=== PATIENT | female | born 1945 | race Caucasian/White ===

== ENCOUNTER → 2020-03-02 14:19 | Outpatient (BNVA) | payer MEDICARE, OTHER, SELFPAY | PROVIDERS: Visit Provider Nurse Practitioner Family | DX: Z53.29 Procedure and treatment not carried out because of patient's decision for other reasons (principal) | CPT/HCPCS: 73030 ==

== ENCOUNTER 2020-03-09 14:32 | Outpatient (CLI) | payer MEDICARE, OTHER, SELFPAY ==
--- NOTE | 2020-03-09 14:39 | MR_ITS ---
WS: [id number] MRI LEFT SHOULDER NONCONTRAST TECHNIQUE: Sagittal T2, coronal T1, T2 and proton density imaging. Axial gradient PDE imaging. CLINICAL INFORMATION: FALL/LEFT SHOULDER PAIN COMPARISON: None. FINDINGS: Mild degenerative arthritis at the AC joint. Mild downsloping of the acromion. Slight subacromial spu rring. Normal supraspinatus and infraspinatus. Normal teres minor. Normal subscapularis. Normal bicep s tendon in the bicipital groove. Labrum is normal in appearance. No acute appearing labral tears. No rmal glenoid. Well-circumscribed lesion in the proximal humeral neck measuring 11 mm with T2 hyperintense foramina small amount of surrounding edema. This lesion is well-circumscribed and appears nonaggressive. This follows bone marrow signal with preservation of the normal fatty bone marrow signal. Differential con siderations include Enchondroma, intraosseous lipoma, and intraosseous hemangioma. Lesion is not typi frandy for metastatic disease. This can be further evaluated with humerus CT. This is not definitely vis ualized on the radiographs. MR/MR shoulder LT wo con* [id number] IMPRESSION: 1. Rotator cuff is normal in appearance. No full-thickness rotator cuff tears. 2. Normal biceps tendon in the bicipital groove. 3. Well-circumscribed 11 mm nonspecific lesion in the humeral neck with well-c ircumscribed margin discussed above. Small amount of surrounding edema. This fo llows bone marrow on all sequences. Recommend further evaluation with CT. 4. No other significant findings.
== END 2020-03-09 14:33 | disposition home or self-care (01) ==
LOC: RADWPI 14:37
PROVIDERS: PCP Nurse Practitioner Family; Visit Provider Nurse Practitioner Family
DX: M25.512 Pain in left shoulder (principal); W19.XXXA Unspecified fall, initial encounter; M75.92 Shoulder lesion, unspecified, left shoulder
CPT/HCPCS: 73221

== ENCOUNTER → 2021-06-16 08:29 | Outpatient (BNVA) | payer MEDICARE, OTHER, SELFPAY | PROVIDERS: PCP Nurse Practitioner Family; Visit Provider Internal Medicine | DX: R79.82 Elevated C-reactive protein (CRP) (principal); M25.511 Pain in right shoulder; M25.512 Pain in left shoulder; Z98.890 Other specified postprocedural states; Z79.899 Other long term (current) drug therapy | CPT/HCPCS: 36415; 99214 ==

== ENCOUNTER 2021-06-16 10:12 | Outpatient (CLI) | payer MEDICARE, OTHER, SELFPAY ==
--- NOTE | 2021-06-16 10:19 | XR_ITS ---
WS: [id number] SHOULDER LEFT TECHNIQUE: 3 views of the left shoulder CLINICAL INFORMATION: M25.519 - Pain in unspecified shoulder COMPARISON: None. FINDINGS: Mild degenerative arthritis acromioclavicular joint. Narrowing of the subacromial space. Normal gleno humeral joint. Acromion is normal in appearance. Normal glenoid. No evidence of acute fracture disloc ation. Surgical clips along the left hilum. XR/XR shoulder LT min 2V* [id number] IMPRESSION: Mild degenerative arthritis AC joint. Narrowing of the subacromial space. No ac trevre fractures or dislocation.
--- NOTE | 2021-06-16 10:19 | XR_ITS ---
WS: [id number] SHOULDER RIGHT TECHNIQUE: 3 views of the right shoulder CLINICAL INFORMATION: M25.519 - Pain in unspecified shoulder COMPARISON: None. FINDINGS: Mild degenerative arthritis acromioclavicular joint. Mild narrowing of the subacromial space. Normal glenohumeral joint. Acromion is normal in appearance. Normal glenoid. No evidence of acute fracture d islocation. XR/XR shoulder RT min 2V* [id number] IMPRESSION: Mild degenerative arthritis AC joint. No acute fracture or dislocation.
== END 2021-06-16 10:13 | disposition home or self-care (01) ==
PROVIDERS: PCP Nurse Practitioner Family; Visit Provider Internal Medicine
DX: M25.519 Pain in unspecified shoulder (principal); R79.82 Elevated C-reactive protein (CRP)
CPT/HCPCS: 73030; 81003; 82728; 83540; 85651; 86140; 86160; 86162; 86200; 86235; 86255; 86376

== ENCOUNTER → 2021-08-10 14:07 | Outpatient (BNVA) | payer MEDICARE, OTHER, SELFPAY | PROVIDERS: PCP Nurse Practitioner Family; Visit Provider Internal Medicine | DX: M25.519 Pain in unspecified shoulder (principal); R93.6 Abnormal findings on diagnostic imaging of limbs; R79.82 Elevated C-reactive protein (CRP); Z79.899 Other long term (current) drug therapy | CPT/HCPCS: 80053; 81000; 81003; 83516; 84155; 84165; 85025; 85651; 86140 ==

== ENCOUNTER → 2021-08-30 08:25 | Outpatient (BNVA) | payer MEDICARE, OTHER, SELFPAY | PROVIDERS: PCP Nurse Practitioner Family; Visit Provider Internal Medicine | DX: M25.519 Pain in unspecified shoulder (principal); R79.82 Elevated C-reactive protein (CRP); Z79.52 Long term (current) use of systemic steroids | CPT/HCPCS: 99214 ==

== ENCOUNTER → 2021-11-16 09:35 | Outpatient (BNVA) | payer MEDICARE, OTHER, SELFPAY | PROVIDERS: PCP Nurse Practitioner Family; Visit Provider Internal Medicine | DX: R79.82 Elevated C-reactive protein (CRP) (principal); Z79.899 Other long term (current) drug therapy | CPT/HCPCS: 80053; 85025; 85651; 86140 ==

== ENCOUNTER → 2021-11-30 08:33 | Outpatient (BNVA) | payer MEDICARE, OTHER, SELFPAY | PROVIDERS: PCP Nurse Practitioner Family; Visit Provider Internal Medicine | DX: M75.101 Unspecified rotator cuff tear or rupture of right shoulder, not specified as traumatic (principal); M75.102 Unspecified rotator cuff tear or rupture of left shoulder, not specified as traumatic; Z79.899 Other long term (current) drug therapy | CPT/HCPCS: 99213; 99214 ==

== ENCOUNTER 2022-06-02 06:00 | Outpatient (RCR) | payer MEDICARE, OTHER, SELFPAY | END 2022-06-05 23:59 | disposition home or self-care (01) | LOC: TPT 06:00 | PROVIDERS: PCP Nurse Practitioner Family; Visit Provider Orthopaedic Surgery | DX: M75.41 Impingement syndrome of right shoulder (principal); M71.9 Bursopathy, unspecified; M75.21 Bicipital tendinitis, right shoulder; M19.011 Primary osteoarthritis, right shoulder | CPT/HCPCS: 97110; 97162 ==

== ENCOUNTER 2022-06-06 06:00 | Outpatient (RCR) | payer MEDICARE, OTHER, SELFPAY | END 2022-07-05 23:59 | disposition home or self-care (01) | LOC: TPT 06:00 | PROVIDERS: PCP Nurse Practitioner Family; Visit Provider Orthopaedic Surgery | DX: M75.41 Impingement syndrome of right shoulder (principal); M71.9 Bursopathy, unspecified; M75.21 Bicipital tendinitis, right shoulder; M19.011 Primary osteoarthritis, right shoulder | CPT/HCPCS: 97110; 97140 ==